=== PATIENT | male | born 1975 | race Caucasian/White ===

== ENCOUNTER 2017-06-26 16:00 | Outpatient (CLI) | payer BC | END 2017-06-26 16:01 | disposition home or self-care (01) | LOC: SLEEPLAB 16:00 | PROVIDERS: ATTEND Internal Medicine | DX: G47.33 Obstructive sleep apnea (adult) (pediatric) (principal); G47.31 Primary central sleep apnea | CPT/HCPCS: 95806 ==

== ENCOUNTER 2017-11-09 09:56 | Emergency (ER) | payer BC ==
--- NOTE | 2017-11-09 12:17 | RAD ---
CHEST 2 VIEWS: Date: 11/09/17 HISTORY: Fever and cough. FINDINGS: Heart size and mediastinum are within normal limits. Lungs are clear of infiltrates. No significant b jany findings. IMPRESSION: No active intrathoracic disease. POS: [id number]
== END 2017-11-09 10:53 | disposition home or self-care (01) ==
LOC: SCSER 09:56
DX: R50.9 Fever, unspecified (principal); F17.220 Nicotine dependence, chewing tobacco, uncomplicated
CPT/HCPCS: 71046

== ENCOUNTER 2025-01-13 13:04 | Outpatient (CLI) | payer BC | END 2025-01-13 13:05 | disposition home or self-care (01) | LOC: RAD 13:04 | PROVIDERS: ATTEND Psychiatry & Neurology Neurology | DX: M25.512 Pain in left shoulder (principal) ==